=== PATIENT | female | born 1970 | race Caucasian/White ===

== ENCOUNTER 2017-02-03 17:32 | Observation (INO) ==
[2017-02-03 22:05] LABS: Basophils % 0.4 %; Eosinophils # 0.3 K/mcL (0.0-0.6); Eosinophils % 2.9 %; Immature Granulocytes % 0.3 % (0-4); Lymphocytes # 3.7 K/mcL (0.6-4.6); Lymphocytes % 38.7 %; Mean Corpuscular HGB Conc 32.6 g/dL (31.6-35.5); Mean Corpuscular Hemoglobin 29.5 pg (28.0-33.3); Mean Corpuscular Volume 90.6 fL (83.0-100.0); Mean Platelet Volume 10.6 fL (9.4-12.4); Monocytes # 0.7 K/mcL (0.0-1.3); Monocytes % 7.6 %; Neutrophils # 4.8 K/mcL (1.6-8.9); Platelet Count 198 K/mcL (140-400); Red Blood Count 5.08 M/mcL (3.82-4.97); Red Cell Distribution Width 13.8 % (11.5-14.5); Segmented Neutrophils % 50.1 %
[2017-02-03 22:15] LABS: Bilirubin,Urine Negative (Negative); Blood,Urine Negative (Negative); Clarity,Urine Clear (Clear); Color,Urine Yellow (Yellow); Glucose,Urine (UA) Normal (Normal); Ketones,Urine Negative (Negative); Leukocyte Esterase,Urine Negative (Negative); Nitrite,Urine Negative (Negative); Protein,Urine Trace mg/dL (Neg-Trace); Specific Gravity,Urine 1.027 (1.010-1.025); Urobilinogen,Urine Normal (Normal)
[2017-02-03 22:16] LABS: Bacteria,Urine None Seen per hpf (None-Few); Hyaline Casts,Urine None Seen per lpf (None-Few); Squamous Epithelial Cell,Urine Moderate per lpf (None-Few); WBC,Urine 0-3 per hpf (0-3)
[2017-02-03 22:21] LABS: Alanine Aminotransferase 27 Units/L (0-55); Albumin 3.9 g/dL (3.5-5.0); Albumin/Globulin Ratio 1.1 (1.1-2.2); Alkaline Phosphatase 116 Units/L (38-126); Amylase 25 Units/L (25-125); Aspartate Amino Transferase 17 Units/L (5-34); BUN/Creatinine Ratio 16 (6-26); Bilirubin,Direct 0.2 mg/dL (0.0-0.5); Bilirubin,Indirect 0.5 mg/dL (0.0-1.2); Bilirubin,Total 0.7 mg/dL (0.2-1.2); Blood Urea Nitrogen 14 mg/dL (7-20); Calcium 9.8 mg/dL (8.6-10.8); Carbon Dioxide 24 mEq/L (19-29); Chloride 106 mEq/L (98-109); Globulin 3.4 g/dL (2.4-3.5); Glucose 152 mg/dL (70-99); Lipase 14 Units/L (8-78); Osmolality,Calculated 295 (280-300); Potassium 3.7 mEq/L (3.5-4.5); Sodium 141 mEq/L (136-145); Total Protein 7.3 g/dL (6.0-8.3); eGFR For African Americans > 60 (> 60); eGFR For Non-African Americans > 60 (> 60)
--- NOTE | 2017-02-03 23:06 | Emergency Department Note ---
Disposition Clinical Impression: Cholecystitis, acute Disposition: Admitted As Inpatient Condition: Good Time of Disposition: 23:30 Abdominal Pain HPI - General Chief Complaint: ED Abdominal Pain Stated Complaint: Gall Bladder issue Time Seen by Provider: 02/03/17 21:53 Source: patient Mode of arrival: ambulatory Limitations: no limitations Nursing Notes Reviewed: Yes Vital Signs Reviewed: Yes - History of Present Illness HPI Narrative: 46-year-old female presents with concerns of right upper quadrant abdominal pain. Patient states symptoms of an worsening over the past 2-3 weeks. Patient states the abdominal pain is sharp and aching and significantly worsens with any type of by mouth intake. Patient has a long history of reflux and this feels different than her usual reflux. Patient states she is evaluated in urgent care prior to arrival who recommended she should have an ultrasound to rule out cholecystitis. She denies fever, chills, jaundice, chest pain, shortness of breath, palpitations. Pain Scale: 10 - Related Data Home Medications Medication Instructions Recorded Confirmed Black Cohosh Root Extract [Black 320 mg PO DAILY 02/04/17 02/04/17 Cohosh] HYDROcodone/Acet 5/325 mg [[place] 1 tab PO Q6H PRN 02/04/17 02/04/17 5-325 mg] Loratadine [Allergy Relief] 10 mg PO DAILY 02/04/17 02/04/17 Potassium Chloride [Klor-Con 10] 10 meq PO DAILY 02/04/17 02/04/17 Ranitidine HCl [Acid Auto Radiator Specialist] 450 mg PO PRN PRN 02/04/17 02/04/17 Allergies Allergy/AdvReac Type Severity Reaction Status Date / Time cephalexin [From Keflex] Allergy Swelling Verified 02/04/17 12:44 of Lip/Tongue/Throat Penicillins [PCN] Allergy Hives Verified 02/04/17 12:49 All systems ED: reviewed and negative except as stated. Constitutional: Denies: fever, chills, weakness Eyes: Denies: eye pain Cardiovascular: Denies: chest pain, palpitations Respiratory: Denies: cough, dyspnea, wheezes Gastrointestinal: Reports: abdominal pain, nausea. Denies: vomiting, diarrhea Genitourinary: Denies: urgency, dysuria Musculoskeletal: Denies: back pain Integumentary: Denies: rash, abrasion Abdominal Pain PMH - Past Medical History Medical history: Reports: cancer Female Surgical History: Reports: hysterectomy Psychiatric history: Reports: no psych history - Social History Smoking status: Current every day smoker Alcohol use: Reports: rarely Drug use: Reports: none Physical Exam General: Alert and in no acute distress Skin: Warm, dry, intact Head: Normocephalic and atraumatic Neck: Supple, trachea midline and no tenderness Cardiovascular: RRR, no murmur, normal perfusion Respiratory: CTAB, no wheezing, cough, or respiratory distress Musculoskeletal: Normal strength, no tenderness, swelling or deformity GI: Soft, mild tenderness to palpation of the epigastrium and right upper quadrant without evidence of rigidity, guarding, or rebound. nondistended. Bowel sounds present Neuro: A&O to person, place, time and situation. No focal deficits noted on exam Psychiatric: cooperative and appropriate mood and affect. - General Limitations: no limitations General appearance: alert, in no apparent distress Course Vital Signs Temperature 98.5 F 02/03/17 18:05 Pulse Rate 106 02/03/17 18:05 Respiratory Rate 18 02/03/17 18:05 Blood Pressure 184/114 02/03/17 18:05 O2 Sat by Pulse Oximetry 97 02/03/17 18:05 Temperature 99.1 F 02/04/17 20:10 Pulse Rate 83 02/04/17 20:10 Respiratory Rate 16 02/04/17 20:10 Blood Pressure 165/102 02/04/17 20:10 O2 Sat by Pulse Oximetry 9 02/04/17 20:30 Oxygen Delivery Oxygen Delivery Nasal Cannula Abdominal Pain - MDM Narrative Medical decision making narrative: Patient has tenderness to palpation in the right upper quadrant and I will obtain an ultrasound to rule out acute cholecystitis. Ultrasound revealed a large nonmobile stone in the gallbladder neck with mild dilatation of the common bile duct. Patient has pericholecystic fluid surrounding the gallbladder neck on the ultrasonography report. She has tenderness to palpation of the right upper quadrant. She has difficulty tolerating by mouth intake at home. I spoke with Dr. Huizar who agreed to admit the patient for possible cholecystectomy. - Medical Records Medical records reviewed: Yes I reviewed the patient's medical records. - Lab Data Lab results reviewed: Yes I reviewed the patient's lab results. Result diagrams: 02/04/17 05:34 02/03/17 21:42 Lab Results 02/03/17 02/03/17 02/03/17 Range/Units 21:42 21:42 22:03 WBC 9.5 (4.3-11.1) K/mcL RBC 5.08 H (3.82-4.97) M/mcL Hgb 15.0 (11.5-15.4) g/dL Hct 46.0 H (35.3-44.9) % MCV 90.6 (83.0-100.0) fL MCH 29.5 (28.0-33.3) pg MCHC 32.6 (31.6-35.5) g/dL RDW 13.8 (11.5-14.5) % Plt Count 198 (140-400) K/mcL MPV 10.6 (9.4-12.4) fL Immature Gran % 0.3 (0-4) % Seg Neutrophils % 50.1 % Lymphocytes % 38.7 % Monocytes % 7.6 % Eosinophils % 2.9 % Basophils % 0.4 % Neutrophils # 4.8 (1.6-8.9) K/mcL Lymphocytes # 3.7 (0.6-4.6) K/mcL Monocytes # 0.7 (0.0-1.3) K/mcL Eosinophils # 0.3 (0.0-0.6) K/mcL Basophils # 0.0 (0.0-0.2) K/mcL Sodium 141 (136-145) mEq/L Potassium 3.7 (3.5-4.5) mEq/L Chloride 106 (98-109) mEq/L Carbon Dioxide 24 (19-29) mEq/L BUN 14 (7-20) mg/dL Creatinine 0.90 (0.57-1.11) mg/dL Est GFR ( Amer) > 60 (> 60) Est GFR (Non-Af Amer) > 60 (> 60) BUN/Creatinine Ratio 16 (6-26) Glucose 152 H (70-99) mg/dL Calculated Osmolality 295 (280-300) Calcium 9.8 (8.6-10.8) mg/dL Total Bilirubin 0.7 (0.2-1.2) mg/dL Direct Bilirubin 0.2 (0.0-0.5) mg/dL Indirect Bilirubin 0.5 (0.0-1.2) mg/dL AST 17 (5-34) Units/L ALT 27 (0-55) Units/L Alkaline Phosphatase 116 (38-126) Units/L Serum Total Protein 7.3 (6.0-8.3) g/dL Albumin 3.9 (3.5-5.0) g/dL Globulin 3.4 (2.4-3.5) g/dL Albumin/Globulin Ratio 1.1 (1.1-2.2) Amylase 25 (25-125) Units/L Lipase 14 (8-78) Units/L Urine Color (Yellow) Urine Clarity (Clear) Urine pH (5.0-8.0) pH Units Ur Specific [place] (1.010-1.025) Urine Protein (Neg-Trace) mg/dL Urine Glucose (UA) (Normal) mg/dL Urine Ketones (Negative) mg/dL Urine Blood (Negative) Urine Nitrite (Negative) Urine Bilirubin (Negative) Urine Urobilinogen (Normal) mg/dL Ur Leukocyte Esterase (Negative) Urine Microscopic RBC (0-3) per hpf Urine Microscopic WBC (0-3) per hpf Ur Squamous Epith Cells (None-Few) per lpf Urine Bacteria (None-Few) per hpf Hyaline Casts (None-Few) per lpf Ur Culture Indicated? (NO) Urine Test Negative (Negative) 02/03/17 Range/Units 22:03 WBC (4.3-11.1) K/mcL RBC (3.82-4.97) M/mcL Hgb (11.5-15.4) g/dL Hct (35.3-44.9) % MCV (83.0-100.0) fL MCH (28.0-33.3) pg MCHC (31.6-35.5) g/dL RDW (11.5-14.5) % Plt Count (140-400) K/mcL MPV (9.4-12.4) fL Immature Gran % (0-4) % Seg Neutrophils % % Lymphocytes % % Monocytes % % Eosinophils % % Basophils % % Neutrophils # (1.6-8.9) K/mcL Lymphocytes # (0.6-4.6) K/mcL Monocytes # (0.0-1.3) K/mcL Eosinophils # (0.0-0.6) K/mcL Basophils # (0.0-0.2) K/mcL Sodium (136-145) mEq/L Potassium (3.5-4.5) mEq/L Chloride (98-109) mEq/L Carbon Dioxide (19-29) mEq/L BUN (7-20) mg/dL Creatinine (0.57-1.11) mg/dL Est GFR ( Amer) (> 60) Est GFR (Non-Af Amer) (> 60) BUN/Creatinine Ratio (6-26) Glucose (70-99) mg/dL Calculated Osmolality (280-300) Calcium (8.6-10.8) mg/dL Total Bilirubin (0.2-1.2) mg/dL Direct Bilirubin (0.0-0.5) mg/dL Indirect Bilirubin (0.0-1.2) mg/dL AST (5-34) Units/L ALT (0-55) Units/L Alkaline Phosphatase (38-126) Units/L Serum Total Protein (6.0-8.3) g/dL Albumin (3.5-5.0) g/dL Globulin (2.4-3.5) g/dL Albumin/Globulin Ratio (1.1-2.2) Amylase (25-125) Units/L Lipase (8-78) Units/L Urine Color Yellow (Yellow) Urine Clarity Clear (Clear) Urine pH 6.0 (5.0-8.0) pH Units Ur Specific [place] 1.027 H (1.010-1.025) Urine Protein Trace (Neg-Trace) mg/dL Urine Glucose (UA) Normal (Normal) mg/dL Urine Ketones Negative (Negative) mg/dL Urine Blood Negative (Negative) Urine Nitrite Negative (Negative) Urine Bilirubin Negative (Negative) Urine Urobilinogen Normal (Normal) mg/dL Ur Leukocyte Esterase Negative (Negative) Urine Microscopic RBC 3-5 H (0-3) per hpf Urine Microscopic WBC 0-3 (0-3) per hpf Ur Squamous Epith Cells Moderate H (None-Few) per lpf Urine Bacteria None Seen (None-Few) per hpf Hyaline Casts None Seen (None-Few) per lpf Ur Culture Indicated? NO (NO) Urine Test (Negative)
[2017-02-03] MEDS ORDERED: GI Cocktail 40 ML EACH PO ONE (23:07)
[2017-02-03] MEDS ORDERED: Sucralfate 1 GM TABLET PO STA (23:08)
[2017-02-04] MEDS ORDERED: *HR* LORazepam 2 MG/ML VIAL IVP ONE (00:17)
[2017-02-04 00:28] LABS: INR 1.1; Prothrombin Time 11.6 Seconds (9.4-12.1)
[2017-02-04] MEDS ORDERED: *HR* FentaNYL (PF) 100 MCG/2 ML VIAL IVP ONE (00:37)
[2017-02-04] MEDS ORDERED: Ondansetron 4 MG/2 ML VIAL IVP PRN (01:45)
[2017-02-04] MEDS: 0.9 % Sodium Chloride 1,000 ML IVC SCH ×2 (02:29→20:28)
[2017-02-04 05:59] LABS: Basophils % 0.6 %; Eosinophils # 0.3 K/mcL (0.0-0.6); Eosinophils % 3.8 %; Hematocrit 42.5 % (35.3-44.9); Hemoglobin 14.1 g/dL (11.5-15.4); Immature Granulocytes % 0.3 % (0-4); Immature Platelets 3.6 % (1.1-6.1); Lymphocytes # 2.9 K/mcL (0.6-4.6); Lymphocytes % 41.3 %; Mean Corpuscular HGB Conc 33.2 g/dL (31.6-35.5); Mean Corpuscular Hemoglobin 29.7 pg (28.0-33.3); Mean Corpuscular Volume 89.7 fL (83.0-100.0); Mean Platelet Volume 10.4 fL (9.4-12.4); Monocytes # 0.7 K/mcL (0.0-1.3); Monocytes % 9.5 %; Neutrophils # 3.1 K/mcL (1.6-8.9); Platelet Count 165 K/mcL (140-400); Red Blood Count 4.74 M/mcL (3.82-4.97); Red Cell Distribution Width 13.6 % (11.5-14.5); Segmented Neutrophils % 44.5 %
[2017-02-04 06:20] LABS: Albumin 3.2 g/dL (3.5-5.0); Albumin/Globulin Ratio 1.1 (1.1-2.2); Bilirubin,Direct 0.2 mg/dL (0.0-0.5); Bilirubin,Indirect 0.4 mg/dL (0.0-1.2); Bilirubin,Total 0.6 mg/dL (0.2-1.2); Globulin 2.9 g/dL (2.4-3.5); Total Protein 6.1 g/dL (6.0-8.3)
--- NOTE | 2017-02-04 06:58 | General Surg History&Physical ---
Date of Encounter: 02/04/17 Time of Encounter: 06:35 Assessment and Plan (1) Cholecystitis, acute Current Visit: Yes Status: Acute The assessment and plan as outlined above was discussed with the patient and/or family members who expressed understanding and agreement. All questions were answered. The patient has ultrasound evidence of cholelithiasis with pericholecystic fluid localized to the neck of the gallbladder. The remainder of the gallbladder wall is normal in character and dimension. The common bile duct is slightly dilated at 7 mm. There is no evidence of leukocytosis. Localized findings of the gallbladder wall may be suggestive of acute cholecystitis secondary to acute gallbladder obstruction. However, the patient has a smoking history and prominent chest pain description with chest pressure radiating to her shoulder. Since she is pain free at time of examination I think it is reasonable to go ahead and do a workup for cardiac risk stratification with nonexercise stress test and 12-lead EKG we will plan on performing her surgery the following day if her workup is negative. History of Present Illness Chief complaint: Epigastric and chest pain HPI: Ms. Velasco is a 46 year old female Is been having abdominal pain in the epigastrium for several years. She states that the pain seems to be associated with eating. High-fat foods cause the most pain. She has intermittent nausea and vomiting. She denies shakes chills or fever. She denies episodes of jaundice. Over the last several months the pain episodes have increased in frequency and duration. A typical pain syndrome is epigastric that she states radiates to her chest. She describes tremendous chest pressure radiating to both shoulders as the primary pain syndrome with a secondary pain syndrome radiating to the right upper quadrant. She is a smoker. She has risk factors for coronary artery disease that were not investigated in the emergency room. This morning on examination she is having no pain whatsoever and her physical examination was negative. I think at this point a cardiac workup with nonexercise stress test is warranted. Past Med Surg Social Fam HX - Past Medical History Medical history: cancer Psychiatric history: no psych history - Past Surgical History Surgical History: hysterectomy - Social History Smoking Status: Current every day smoker Packs per day: 1 Smokeless Tobacco Status: No Alcohol use: rarely Drug use: none - Family History Father Living Status: Hx Family Cardiac Disorders: Yes (CHF) Medications and Allergies Black Cohosh PO DAILY 02/04/17 [History] Potassium PO DAILY 02/04/17 [History] Ranitidine HCl [Acid Regulatory Intern] 450 mg PO PRN PRN 02/04/17 [History] Allergies cephalexin [From Keflex] Allergy (Verified 02/03/17 18:09) Swelling of Lip/Tongue/Throat Penicillins [PCN] Allergy (Verified 02/03/17 18:09) Hives Review of Systems All systems PM: reviewed and no additional remarkable complaints except as stated All systems PM: A 10-system review of systems was performed and is negative for pertinent findings except as documented above in the HPI. - Cardiovascular other (The patient denies chest pain with exercise.) - Respiratory wheezing - Gastrointestinal abdominal pain, bloating, vomiting General Surgery Exam Initial Vital Signs Temp Pulse Resp BP Pulse Ox 98.5 F 106 18 184/114 97 02/03/17 18:05 02/03/17 18:05 02/03/17 18:05 02/03/17 18:05 02/03/17 18:05 - General physical appearance well developed, well nourished, no distress - ENT normal pinna, normal nares, normal mucosa, no hearing loss, no congestion - Neck no masses, no bruits, trachea midline, no lymphadectomy, no venous distension - Respiratory normal expansion, normal respiratory effort, clear to percussion, clear to auscultation - Cardiovascular Cardiovascular exam: Present: RRR, 15, 16 - Abdomen Abdomen general surgery: Present: bowel sounds present, soft, non tender - Neurologic Present: CN 2-12 grossly intact, normal coordination, normal sensation - Psychiatric Psychiatric general surgery: Present: appropriate, oriented to person, oriented to place, oriented to time, speech is normal, memory intact Results - Labs 02/04/17 05:34 02/03/17 21:42 Abnormal lab results Glucose 152 mg/dL (70-99) H 02/03/17 21:42 POC Glucose 119 (58-89) H 02/04/17 06:00 Albumin 3.2 g/dL (3.5-5.0) L 02/04/17 05:34 Ur Specific [place] 1.027 (1.010-1.025) H 02/03/17 22:03 Urine Microscopic RBC 3-5 per hpf (0-3) H 02/03/17 22:03 Ur Squamous Epith Cells Moderate per lpf (None-Few) H 02/03/17 22:03 Diabetes panel 02/04/17 Range/Units 05:34 AST 16 (5-34) Units/L ALT 23 (0-55) Units/L Alkaline Phosphatase 100 (38-126) Units/L Albumin 3.2 L (3.5-5.0) g/dL Calcium panel 02/04/17 Range/Units 05:34 Albumin 3.2 L (3.5-5.0) g/dL Adrenal panel 02/04/17 Range/Units 05:34 Total Bilirubin 0.6 (0.2-1.2) mg/dL AST 16 (5-34) Units/L ALT 23 (0-55) Units/L Alkaline Phosphatase 100 (38-126) Units/L Albumin 3.2 L (3.5-5.0) g/dL All other labs normal.
[2017-02-04] MEDS ORDERED: Regadenoson 0.4 MG/5 ML SYRINGE IVP ONE (09:43)
--- NOTE | 2017-02-04 11:08 | Nuclear Medicine Stress Report ---
Low Level Regadenoson Name: Mary Velasco Date of Study: 02/04/2017 Date: 1970 Ht: 65.0 in Medical Record#: [id number] Age: 46 Wt: 213.0 lb Gender: Female Order #: [id number] Location: [facility] Room: [facility] Supervising Provider: Luis Haynes CNP Reading Physician: Anthony Mccarthy MD, [facility] Ordering Physician: Ld Huizar MD Primary Care Physician: None Stress Technologist: Mallory Henson RRT,[facility] Tutoring Manager: [place] Indications: Chest Pain, Pre-operative Impression: Baseline elevated blood pressure (162/92). Normal hemodynamic responses to regadenoson and low level exercise. No significant ECG changes with regadenoson and low level exercise. Gated LVEF > 70%. Perfusion imaging was negative for ischemia or infarct. History: History of Smoking Stress Test Summary: Stress Test Type: Low level pharmacologic Regadenoson 0.4mg/5ml given IV Baseline Information: Initial Heart Rate: 92 Blood Pressure: 162/92 Stress Information: Stress Time: 4 min 00 sec Test Terminated Due to (primary): As per protocol Maximum Blood Pressure: 176/76 Maximum Heart Rate: 120 Percent Maximum Heart Rate Achieved: 69 Double Product: 66661 METS Reached: 2.1 Symptoms: No chest symptoms Nuclear Summary: SPECT myocardial perfusion imaging using Tc99m Sestamibi given intravenously was performed at rest and following cardiac stress testing. The resting images were obtained following initial dose of 10.5 mCi. Following stress an additional dose of 33.6 mCi was given at peak exercise or 30 seconds post regadenoson infusion. Findings: Stress Note * Resting ECG demonstrated normal sinus rhythm. * No baseline arrhythmias were noted. * Patient had no chest pain during stress. * No arrhythmias were noted during stress. * No significant ECG changes with regadenoson and low level exercise. Hemodynamic responses * Baseline elevated blood pressure (162/92). Normal hemodynamic responses to regadenoson and low level exercise. Study Quality * Study quality is good. Gated EF > 70% * Gated LVEF > 70%. Left Ventricle * The left ventricle is not dilated. * Normal Segmental Perfusion in rest. * Normal segmental perfusion in stress. TID * No evidence of transient ischemic dilatation. Updated by Anthony Mccarthy MD, FACC on 02/04/2017 11:03:37 AM electronically signed on 02/04/2017 11:04:14 AM with status of Final
--- NOTE | 2017-02-04 21:03 | Anesthesia Evaluation PreOp ---
Date of Encounter: 02/04/17 Time of Encounter: 21:01 - Past History Planned Operation: Lap cholecystectomy Cardiac History: HTN Pulmonary History: Smoker AFRICAN STUDIES PROFESSOR History: Denies Any Significant HX Other Medical History: GERD, Other (hx cervical CA s/p hysterectomy) Anesthesia History: Past Anesthesia (back surgery, hysterectomy), Problems ( slow to emerge from anesthesia) Alcohol Use: rarely Drug use: none Medications and Allergies Black Cohosh Root Extract [Black Cohosh] 320 mg PO DAILY 02/04/17 [History] HYDROcodone/Acet 5/325 mg [[place] 5-325 mg] 1 tab PO Q6H PRN 02/04/17 [History] Loratadine [Allergy Relief] 10 mg PO DAILY 02/04/17 [History] Potassium Chloride [Klor-Con 10] 10 meq PO DAILY 02/04/17 [History] Ranitidine HCl [Acid Acute Dialysis Nurse] 450 mg PO PRN PRN 02/04/17 [History] Allergies cephalexin [From Keflex] Allergy (Verified 02/04/17 12:44) Swelling of Lip/Tongue/Throat Penicillins [PCN] Allergy (Verified 02/04/17 12:49) Hives patient states childhood reaction - Meds/Allergy Pre-op Review Medications Reviewed: Yes Allergies Reviewed: Yes Beta Blockers on Current Med List: No Anesthesia Results - Labs 02/04/17 05:34 02/03/17 21:42 - Imaging EKG: report reviewed, image reviewed (NSR (EKG in nuclear stress test)) Additional studies: 02-04-17 nuclear stress: Perfusion imaging negative for ischemia or infarct Gated EF > 70% baseline elevated BP normal hemodynamic response to regadenoson or low level exercise no ECG changes Anesthesia Exam Last Vital Signs Temp 99.1 F 02/04/17 20:10 Pulse 83 02/04/17 20:10 Resp 16 02/04/17 20:10 BP 165/102 02/04/17 20:10 Pulse Ox 9 02/04/17 20:30 - HEENT Pupil (Motor): Pupils equal, EOMI Mallampati: I Teeth: Normal Oral Opening: Greater than 3 - AFRICAN STUDIES PROFESSOR LOC: Oriented AFRICAN STUDIES PROFESSOR Motor: Normal RUE, Normal LUE, Normal RLE, Normal LLE, Normal Face - Cardiac Rhythm: Regular Murmur: None - Pulmonary Breath Sounds: bilateral Clear Respiratory Effort: Symmetrical Anesthesia Assess/Plan ASA Score: 2 Modified Manny Scale for Level of Consciousness: Cooperative, oriented, and tranquil Anesthetic Plan: General Monitoring Plan: Standard Monitors Recovery Plan: PACU
[2017-02-04] MEDS: *HR* HYDROmorphone (PF) 1 MG/ML SYRINGE IVP PRN (21:57)
[2017-02-05] MEDS: *HR* HYDROmorphone (PF) 1 MG/ML SYRINGE IVP PRN ×3 (04:28→15:14)
[2017-02-05] MEDS ORDERED: *HR* LORazepam 2 MG/ML VIAL IVP ONE (08:04)
[2017-02-05] MEDS: 0.9 % Sodium Chloride 1,000 ML IVC SCH ×2 (08:07→08:24)
[2017-02-05] MEDS ORDERED: *HR* LORazepam 2 MG/ML VIAL ONE (08:09)
[2017-02-05] MEDS ORDERED: Water for inj. (sterile) 10 ML IV ONE (08:09)
[2017-02-05] MEDS ORDERED: *HR* Midazolam HCl 2 MG/2 ML VIAL ONE ×2 (09:56→10:44)
[2017-02-05] MEDS ORDERED: *HR* FentaNYL (PF) 100 MCG/2 ML VIAL ONE (09:56)
[2017-02-05] MEDS ORDERED: Lidocaine -MPF 4% 5 ML AMPUL ONE (09:58)
[2017-02-05] MEDS ORDERED: *HR* Rocuronium Bromide 50 MG/5 ML VIAL ONE (09:58)
[2017-02-05] MEDS ORDERED: Ondansetron 4 MG/2 ML VIAL ONE (09:58)
[2017-02-05] MEDS ORDERED: Dexamethasone 4 MG/ML VIAL ONE (09:58)
[2017-02-05] MEDS ORDERED: Lidocaine -MPF 2% 2 ML VIAL ONE (09:58)
[2017-02-05] MEDS ORDERED: *HR* HYDROmorphone 2 MG/ML SYRINGE ONE (11:04)
--- NOTE | 2017-02-05 11:57 | Operative Note ---
Date of procedure: 02/05/17 Pre-op diagnosis: Acute cholecystitis and cholelithiasis Post-op diagnosis: same Procedure: I prescribed a cholecystectomy Anesthesia: YOHANA Surgeon: Ld Huizar Estimated blood loss (cc): 25 Specimen: Gallbladder and contents Condition: stable Disposition: PACU Procedure in Detail: Laparoscopic cholecystectomy Operative procedure after informed consent and appropriate patient identification timeout the patient's take major operating suite and placed supine position given adequate general endotracheal anesthesia the abdomen is prepped and draped in sterile fashion utilizing ChloraPrep standard draping techniques timeout was taken patient is identified. I made a vertical midline incision below the umbilicus dissected down to level of fascia there are 2 traction stitches placed in the abdominal cavity was entered visually. A Robertson trocar was placed in the abdomen and the abdomen was insufflated to 15 mmHg pressure CO2 the gallbladder was visualized. A placement 11 port in the subxiphoid area and 2 5 mm ports in the subcostal area. The gallbladder was acutely obstructed and acutely inflamed. I attempted to decompress the gallbladder with a decompression needle but the bile was too thick and had to be manually suctioned. The gallbladder was grasped and elevated. A variety of blunt and sharp dissection techniques were used to isolate the cystic duct and cystic artery. The neck of the gallbladder was acutely inflamed. The cystic duct was very small and fibrotic. I was unable to obtain cholangiogram The cystic artery was controlled with 2 surgical clips proximally and one distally and it was divided I placed a surgical clip on the neck the gallbladder. the cystic duct was controlled with 2 surgical clips proximally and was divided the gallbladder was removed from the gallbladder fossae using electrocautery. The gallbladder was removed through the #11 port site in a specimen bag. I replaced the #11 port and irrigated with copious amounts of antibiotic containing solution. There is no evidence of bleeding or bile leak. All trochars were removed. Fascia was closed with 0 interrupted Nurolon and the skin with 2-0 and 4-0 Vicryl she tolerated the procedure well and was transferred to recovery in stable condition
--- NOTE | 2017-02-05 12:36 | Anesthesia Evaluation Post Op ---
Date of Encounter: 02/05/17 Time of Encounter: 12:35 - Vital Signs Vital Signs: Vital Signs/O2 Sat/Glucose, Most Recent Temp Pulse Resp BP Pulse Ox 98.3 F 66 16 176/103 100 02/05/17 12:29 02/05/17 12:29 02/05/17 12:29 02/05/17 12:29 02/05/17 12:29 Blood Glucose* 133 - Lungs Lungs: Clear Ascult./Percussion - Airway Airway: Non-obstructed - Cardiovascular Regular Rate - Mental Status Mental Status: Alert & Oriented, Answers Appropriately - Pain Pain Scale: 0 Pain Scale used: Numeric (1 - 10) - Nausea Vomiting Nausea Vomiting: Not Present - Hydration Hydration: NPO - Discharge PostOp Status: Transfer Patient to floor
[2017-02-05] MEDS ORDERED: 0.9 % Sodium Chloride 1,000 ML IVC SCH (13:11)
[2017-02-05] MEDS ORDERED: Ondansetron 4 MG/2 ML VIAL IVP PRN (13:11)
[2017-02-05] MEDS ORDERED: Ondansetron ODT 4 MG TAB.RAPDIS SL PRN (18:59)
[2017-02-05] MEDS: *HR* HYDROmorphone (PF) 1 MG/ML SYRINGE IM PRN (19:57)
[2017-02-05] MEDS: *HR* OxyCODONE/APAP 10/325 TABLET PO PRN (22:14)
[2017-02-06] MEDS: *HR* HYDROmorphone (PF) 1 MG/ML SYRINGE IM PRN ×2 (00:24→04:08)
--- NOTE | 2017-02-06 06:40 | Electrocardiograph Report ---
[address] [address] Test Date: 2017-02-05 Pat Name: Mary Velasco Department: 115 Room: 3A56 Gender: F Mortgage Counselor: GINETTE : 1970 Requested By: Ld Huizar Order Number: [id number] Reading MD: Brandon Murrell MD Measurements Intervals [place] Rate: 75 P: 48 PA: 186 QRS: 50 QRSD: 94 T: 36 QT: 413 QTc: 441 Interpretive Statements SINUS RHYTHM Electronically Signed On 02-06-2017 6:38:40 EDT by Brandon Murrell MD
[2017-02-06] MEDS: *HR* OxyCODONE/APAP 10/325 TABLET PO PRN (07:55)
[2017-02-06 08:21] VITALS: BP 135/84
--- NOTE | 2017-02-06 09:00 | Discharge Summary ---
<Cornelio Kaplan - Last Filed: 02/06/17 08:54> Date of Encounter: 02/06/17 Time of Encounter: 08:54 - Discharge Diagnosis (1) Cholecystitis, acute Priority: Primary Status: Resolved - Discharge Medications Prescriptions: OxyCODONE/APAP 5/325 [Percocet 5/325 MG] 1 each PO Q6HR PRN #28 tablet PRN Reason: Pain Home Medications: Black Cohosh Root Extract [Black Cohosh] 320 mg PO DAILY 02/04/17 [History] HYDROcodone/Acet 5/325 mg [[place] 5-325 mg] 1 tab PO Q6H PRN 02/04/17 [History] Loratadine [Allergy Relief] 10 mg PO DAILY 02/04/17 [History] Potassium Chloride [Klor-Con 10] 10 meq PO DAILY 02/04/17 [History] Ranitidine HCl [Acid Clinical Registered Nurse] 450 mg PO PRN PRN 02/04/17 [History] OxyCODONE/APAP 5/325 [Percocet 5/325 MG] 1 each PO Q6HR PRN #28 tablet 02/06/17 [Rx] Allergies/Adverse Reactions: Allergies cephalexin [From Keflex] Allergy (Verified 02/04/17 12:44) Swelling of Lip/Tongue/Throat Penicillins [PCN] Allergy (Verified 02/04/17 12:49) Hives patient states childhood reaction General Surgery Exam Initial Vital Signs Temp Pulse Resp BP Pulse Ox 98.5 F 106 18 184/114 97 02/03/17 18:05 02/03/17 18:05 02/03/17 18:05 02/03/17 18:05 02/03/17 18:05 - General physical appearance well developed, well nourished, no distress - Neck trachea midline - Respiratory normal expansion, clear to auscultation - Cardiovascular Cardiovascular exam: Present: RRR - Abdomen Abdomen general surgery: Present: bowel sounds present, soft, tender (expected post op incisional tenderness) - Neurologic Present: CN 2-12 grossly intact - Psychiatric Psychiatric general surgery: Present: A&Ox3 Date of admission: 02/03/17 23:58 Primary care physician: PCP NO Consults: 02/04/17 02:31 Consult to Nutrition [CONS] Routine Comment: Consulting Provider: NUTRITION Reason for Dietary Consult: MST Score Discharging clinician: Ld Huizar Anticipated date of discharge: 02/06/17 - Patient Status Disposition: Home, Self-Care Condition: Good Overall status at discharge: patient is progressing back to baseline - Discharge Instructions Follow Up With: Denise Luna CNP [Advanced Practice Nurse] - 02/13/17 10:45 am Forms: Work/School Release Additional Instructions: Do not return to work for 2 weeks. Follow up with Dr. Huizar or Nidia Luna in 1-2 weeks. Wash your incisions daily with soap and water and pat dry. You may shower but do not take a bath or submerge incisions in water. Do not drive while you are still taking your narcotic pain medication. - Diet and Activity Activity: return to work once cleared by your PCP/specialist (Return to work in 2 weeks from the day of surgery which was 02/05/17) Diet: advance to your usual diet - Hospital Course Hospital course: Ms. Gr has ultrasound evidence of cholelithiasis with pericholecystic fluid localized to the neck of the gallbladder. The remainder of the gallbladder wall is normal in character and dimension. The common bile duct is slightly dilated at 7 mm. There is no evidence of leukocytosis. Localized findings of the gallbladder wall may be suggestive of acute cholecystitis secondary to acute gallbladder obstruction. However, the patient has a smoking history and prominent chest pain description with chest pressure radiating to her shoulder. Since she is pain free at time of examination I think it is reasonable to go ahead and do a workup for cardiac risk stratification with nonexercise stress test and 12-lead EKG we will plan on performing her surgery the following day if her workup is negative. A pharmacologic stress test with Regadenoson was performed and revealed no evidence of ischemia, no arrythmias were noted, no ECG changes were noted, she had normal hemodynamic response, Gated EF of 70%, and the left ventricle showed normal perfusion during rest and stress. After her negative stress test she was taken to the OR. Laparoscopic cholecystectomy Operative procedure after informed consent and appropriate patient identification timeout the patient's take major operating suite and placed supine position given adequate general endotracheal anesthesia the abdomen is prepped and draped in sterile fashion utilizing ChloraPrep standard draping techniques timeout was taken patient is identified. I made a vertical midline incision below the umbilicus dissected down to level of fascia there are 2 traction stitches placed in the abdominal cavity was entered visually. A Robertson trocar was placed in the abdomen and the abdomen was insufflated to 15 mmHg pressure CO2 the gallbladder was visualized. A placement 11 port in the subxiphoid area and 2 5 mm ports in the subcostal area. The gallbladder was acutely obstructed and acutely inflamed. I attempted to decompress the gallbladder with a decompression needle but the bile was too thick and had to be manually suctioned. The gallbladder was grasped and elevated. A variety of blunt and sharp dissection techniques were used to isolate the cystic duct and cystic artery. The neck of the gallbladder was acutely inflamed. The cystic duct was very small and fibrotic. I was unable to obtain cholangiogram The cystic artery was controlled with 2 surgical clips proximally and one distally and it was divided I placed a surgical clip on the neck the gallbladder. the cystic duct was controlled with 2 surgical clips proximally and was divided the gallbladder was removed from the gallbladder fossae using electrocautery. The gallbladder was removed through the #11 port site in a specimen bag. I replaced the #11 port and irrigated with copious amounts of antibiotic containing solution. There is no evidence of bleeding or bile leak. All trochars were removed. Fascia was closed with 0 interrupted Nurolon and the skin with 2-0 and 4-0 Vicryl she tolerated the procedure well and was transferred to recovery in stable condition She remained in the hospital for one day post-operatively. She demonstrated normal vital signs and mild pain. She will be discharged home with 2 weeks off work, to follow up outpatient with Dr. Huizar or Nidia Luna, and will be prescribed a short course of oxycodone. - Time Spent with Patient Total time spent providing and/or coordinating discharge services: Greater than 30 minutes Labs on day of discharge: Labs from last 24 hours 02/05/17 12:58 POC Glucose 163 H <Ld Huizar - Last Filed: 02/07/17 13:07> Date of Encounter: 02/06/17 - Discharge Diagnosis (1) Cholecystitis, acute Status: Resolved General Surgery Exam Initial Vital Signs Temp Pulse Resp BP Pulse Ox 98.5 F 106 18 184/114 97 02/03/17 18:05 02/03/17 18:05 02/03/17 18:05 02/03/17 18:05 02/03/17 18:05 Date of admission: 02/03/17 23:58 Primary care physician: PCP NO Consults: 02/04/17 02:31 Consult to Nutrition [CONS] Routine Comment: Consulting Provider: NUTRITION Reason for Dietary Consult: MST Score - Hospital Course Hospital course: Ms. Velasco is a 46 year old female - Time Spent with Patient Total time spent providing and/or coordinating discharge services: - Attending Attestation The patient is seen and evaluated with the resident on morning rounds. Her pain is controlled she tolerated her surgery well and was ready for discharge. I examined this patient and my medical decision-making was reviewed with the SEAL DELIV[employer]HICLE TEAM TECHNICIAN/PA/Advanced Practice Nurse/Resident Physician. I agree with the documented findings, disposition and treatment plan as described except to the extent set forth below. Ld Huizar MD FACS
--- NOTE | 2017-02-06 13:24 | Electrocardiograph Report ---
[place] [id number] Test Date: 2017-02-05 Pat Name: Mary Velasco Department: 115 Room: 3A56 Gender: F Biological Science Technician: GINETTE : 1970 Requested By: Ld Huizar Order Number: [id number] Reading MD: Brandon Murrell MD Measurements Intervals [place] Rate: 75 P: 56 SC: 185 QRS: 52 QRSD: 97 T: 43 QT: 414 QTc: 442 Interpretive Statements SINUS RHYTHM Electronically Signed On 02-06-2017 13:22:17 EDT by Brandon Murrell MD
== END 2017-02-06 10:30 | disposition home or self-care (01) ==
LOC: EMEROO 17:32 → 3ANU 17:32
PROVIDERS: ADMIT Surgery; ATTEND Surgery